=== PATIENT | female | born 1975 ===

== ENCOUNTER 2018-09-30 08:36 | Day surgery (SDC) | payer OTHER ==
[~2018-09-30] VITALS: Ht 147.3 cm; Wt 87.5 kg
[2018-09-30] MEDS ORDERED: ZORVOLEX18 MG PO (09:12)
[2018-09-30] MEDS ORDERED: VITAMIN D PO (09:14)
[2018-09-30] MEDS ORDERED: ZORVOLEX35 MG PO (09:23)
[2018-09-30] MEDS ORDERED: B-12 INJECTION INJ (09:24)
[2018-09-30] MEDS ORDERED: NATURAL IRON65 MG PO (09:25)
[2018-09-30] MEDS ORDERED: HCTZ12.5TAB PO (09:26)
[2018-09-30] MEDS ORDERED: PRILOTC PO (09:26)
[2018-09-30] MEDS ORDERED: ZOFRAN 4MG T4 MG/TAB PO (09:27)
[2018-09-30 09:43] VITALS: BP 146/91; PULSE 75; TEMP 98.4
[2018-09-30 10:45] VITALS: BP 116/60; PULSE 78; TEMP 97
--- NOTE | 2018-09-30 10:45 | NUR ---
Pt to [facility] via cart from [employer]. Pt drowsy, but awake. Pt ambulates to recliner with stand by assistance. Warm blanket given. Pt made comfortable in recliner. Daughter in room. Muffin and coffee given per pt request. Will continue to monitor. Call light within reach.
[2018-09-30 11:00] VITALS: BP 121/78; PULSE 64
--- NOTE | 2018-09-30 11:00 | NUR ---
Pt continues to rest. Denies needs. Call light within reach.
[2018-09-30 11:15] VITALS: BP 116/73; PULSE 60
--- NOTE | 2018-09-30 11:15 | NUR ---
Pt resting. Denies needs. Call light within reach.
--- NOTE | 2018-09-30 11:30 | NUR ---
Discharge instructions reviewed. Pt voices understanding. IV site discontinued with all parts intact. Pt up to dress. Call light within reach.
--- NOTE | 2018-09-30 11:45 | NUR ---
Pt escorted to private car via wheel chair. Pt accompanied home by her daughter.
== END 2018-09-30 11:45 | disposition home or self-care (01) ==
LOC: SDCO 08:36
DX: K21.0 Gastro-esophageal reflux disease with esophagitis (principal); K31.89 Other diseases of stomach and duodenum; K59.00 Constipation, unspecified; J45.909 Unspecified asthma, uncomplicated; E11.9 Type 2 diabetes mellitus without complications; D64.9 Anemia, unspecified; Z90.49 Acquired absence of other specified parts of digestive tract; Z87.891 Personal history of nicotine dependence; Z87.42 Personal history of other diseases of the female genital tract
CPT/HCPCS: J2250; J2405; J3010; J7030